=== PATIENT | female | born 2000 | race Caucasian/White ===

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

== ENCOUNTER → 2023-05-30 | Outpatient (CLI) | payer OTHER ==
[2023-05-31 09:54] LABS: Candida species (DNA Probe) Negative (NEGATIVE); G. vaginalis (DNA Probe) Negative (NEGATIVE); T. vaginalis (DNA Probe) Negative (NEGATIVE)
[2023-06-01 18:10] LABS: APTIMA MEDIA TYPE Unisex Swab; C. TRACHOMATIS BY TMA Negative (Negative); N. GONORRHOEAE BY TMA Negative (Negative); SPECIMEN SOURCE Vaginal
== END ==
LOC: LAB 13:34 → LAB SHORT 13:34
PROVIDERS: Advanced Practice Midwife
DX: Z11.3 Encounter for screening for infections with a predominantly sexual mode of transmission (principal); N76.0 Acute vaginitis
CPT/HCPCS: 87480; 87491; 87510; 87591; 87660

== ENCOUNTER → 2024-06-03 | Outpatient (CLI) | payer OTHER | LOC: LAB SHORT 18:31 → LAB 18:31 | DX: N39.0 Urinary tract infection, site not specified (principal) | CPT/HCPCS: 87086 ==